=== PATIENT | female | born 1995 | race Two or more races ===

== ENCOUNTER 2018-10-08 21:35 | Emergency (ER) | payer OTHER ==
[~2018-10-08] VITALS: Ht 160 cm; Wt 59.4 kg
[2018-10-08 22:21] VITALS: Ht 160 cm; Wt 59.4 kg
[2018-10-09 00:08] VITALS: BP 125/76
== END 2018-10-09 00:08 | disposition home or self-care (01) ==
LOC: ED 21:35
DX: J02.9 Acute pharyngitis, unspecified (principal)